=== PATIENT | male | born 1980 | race Caucasian/White ===

== ENCOUNTER 2017-01-08 18:27 | Emergency (ER) | payer MEDICAID, OTHER ==
[~2017-01-08] VITALS: Ht 170.2 cm; Wt 83.5 kg
[2017-01-08 18:37] VITALS: Ht 170.2 cm; Wt 83.5 kg
--- NOTE | 2017-01-08 19:32 | RADRPT ---
PROCEDURE: XR Chest. CLINICAL INDICATION: chest pain TECHNIQUE: Single frontal view of the chest was obtained COMPARISON: None FINDINGS: The heart and mediastinum are within normal limits. The lungs are clear. There is no pleural effusion or pneumothorax. RPTAT: AA IMPRESSION: No acute disease. .Alexander Shafer MD, Date Time Electronically viewed and signed by .Alexander Shafer MD, on 01/08/2017 19:32 .S/
[2017-01-08 19:57] LABS: BASOPHILS % 0.2 % (0.0-2.0); EOSINOPHILS # 0.1 10^3/ul (0.0-0.5); EOSINOPHILS % 1.4 % (0.0-7.0); HEMATOCRIT 38.3 % (42.0-52.0); HEMOGLOBIN 13.4 g/dl (14.0-18.0); LYMPHOCYTES # 1.9 10^3/ul (0.8-2.9); LYMPHOCYTES % 31.9 % (15.0-51.0); MEAN CORPUSCULAR HEMOGLOBIN 30.3 pg (29.0-33.0); MEAN CORPUSCULAR VOLUME 86.7 fl (82.0-101.0); MEAN PLATELET VOLUME 11.5 fl (7.4-10.4); MONOCYTE # 0.5 10^3/ul (0.3-0.9); MONOCYTES % 9.2 % (0.0-11.0); NEUTROPHIL # 3.4 10^3/ul (1.6-7.5); NEUTROPHILS % 57.1 % (39.0-77.0); PLATELET COUNT 191 10^3/UL (140-415); RED BLOOD COUNT 4.42 10^6/ul (4.70-6.10); RED CELL DISTRIBUTION WIDTH 12.8 % (11.5-14.5); WHITE BLOOD COUNT 5.9 10^3/ul (4.8-10.8)
[2017-01-08 20:20] LABS: ANION GAP 17 (8-16); BLOOD UREA NITROGEN 27 mg/dl (7-20); CALCIUM 9.5 mg/dl (8.4-10.2); CARBON DIOXIDE 30 mmol/L (21-31); CHLORIDE 99 mmol/L (97-110); CREATININE 1.07 mg/dl (0.61-1.24); GLUCOSE 104 mg/dl (70-220); POTASSIUM 3.9 mmol/L (3.5-5.1); SODIUM 142 mmol/L (135-144)
[2017-01-08 20:35] LABS: TROPONIN-I < 0.012 ng/ml (0.00-0.12)
[2017-01-08 20:57] LABS: INR 0.91; PROTIME 12.2 Sec (12.2-14.2)
[2017-01-08 20:58] LABS: PARTIAL THROMBOPLASTIN TIME 28.9 Sec (25.0-35.0)
--- NOTE | 2017-01-08 21:05 | ERD ---
ER Documentation Chief Complaint Date/Time DATE: 01/08/17 TIME: 20:58 Chief Complaint chest pain x 2 weeks HPI 36-year-old male with no past medical history presenting with left-sided intermittent chest pain for the past 2 weeks. 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 When he is working he has no pain. When he stops working he starts feeling some pain in the left side of his chest described as pressure- like, without any associated shortness of breath, dizziness, nausea, vomiting, or diaphoresis. He does say that he worries a lot as he is the boss at work. When he has stress, he does feel some pressure in his chest. He has no family history of coronary artery disease or other serious medical issues. No recent travel or surgeries. ROS All systems reviewed and are negative except as per history of present illness. Medications Home Meds No Active Prescriptions or Reported Meds Allergies Allergies: Coded Allergies: No Known Drug Allergies (Verified Allergy, Unknown, 01/08/17) PMhx/Soc Medical and Surgical Hx: pt denies Medical Hx, pt denies Surgical Hx Hx Alcohol Use: No Hx Substance Use: No Hx Tobacco Use: Yes (5 cigarettes a day) Smoking Status: Current every day smoker FmHx Family History: No coronary disease, No diabetes Physical Exam Vitals Vital Signs Date Time Temp Pulse Resp B/P Pulse Ox O2 Delivery O2 Flow Rate FiO2 01/08/17 18:37 99.1 74 20 131/77 100 Physical Exam Const: Well-appearing, nontoxic, no apparent distress Head: Atraumatic Eyes: Normal Conjunctiva ENT: Normal External Ears, Nose and Mouth. Neck: Full range of motion..~ No meningismus. Resp: Clear to auscultation bilaterally Cardio: Regular rate and rhythm, no murmurs. 2+ distal pulses, equal in all 4 extremities Abd: Soft, non tender, non distended. Normal bowel sounds Skin: No petechiae or rashes Back: No midline or flank tenderness Ext: No cyanosis, or edema Neur: Awake and alert and oriented 3 Psych: Normal Mood and Affect Result Diagram: 01/08/17193901/08/171939 Results 24 hrs Laboratory Tests Test 01/08/17 19:40 01/08/17 20:20 White Blood Count 5.910^3/ul Red Blood Count 4.4210^6/ul Hemoglobin 13.4g/dl Hematocrit 38.3% Mean Corpuscular Volume 86.7fl Mean Corpuscular Hemoglobin 30.3pg Mean Corpuscular Hemoglobin Concent 35.0g/dl Red Cell Distribution Width 12.8% Platelet Count 18436^3/UL Mean Platelet Volume 11.5fl Neutrophils % 57.1% Lymphocytes % 31.9% Monocytes % 9.2% Eosinophils % 1.4% Basophils % 0.2% Nucleated Red Blood Cells % 0.0/100WBC Neutrophils # 3.410^3/ul Lymphocytes # 1.910^3/ul Monocytes # 0.510^3/ul Eosinophils # 0.110^3/ul Basophils # 0.010^3/ul Nucleated Red Blood Cells # 0.010^3/ul Sodium Level 142mmol/L Potassium Level 3.9mmol/L Chloride Level 99mmol/L Carbon Dioxide Level 30mmol/L Anion Gap 17 Blood Urea Nitrogen 27mg/dl Creatinine 1.07mg/dl Glucose Level 104mg/dl Calcium Level 9.5mg/dl Troponin I < 0.012ng/ml Prothrombin Time 12.2Sec Prothrombin Time Ratio 1.0 INR International Normalized Ratio 0.91 Activated Partial Thromboplast Time Pending Procedures/MDM EMERGENT LABS AND DIAGNOSTIC STUDIES: Lab Results above were reviewed and interpreted by me. Labs were unremarkable, troponin negative 12-lead EKG was interpreted by Jay Jama MD: Normal Sinus Rhythm with ventricular rate of 66 beats per minute Normal axis Normal intervals No acute ST or T wave changes suggestive of acute ischemia or STEMI. Radiology Results as interpreted by Radiology below were reviewed by SGil Jama MD: Chest x-ray shows no acute abnormalities Initial Nursing notes reviewed. Previous Medical Records requested via the Electronic Health Record. EMERGENCY DEPARTMENT COURSE / MEDICAL DECISION MAKING: This patient is presenting with 2 weeks of intermittent chest pain. His vitals are stable and he is afebrile. I have a low suspicion for pulmonary embolism, aortic dissection, or acute coronary syndrome. His initial troponin was negative. I do not think he needs a repeat troponin as this pain has been going on for a long time. His EKG showed no acute changes. At this time I think the patient is stable for discharge. He is asymptomatic in the ED. I reassured him that does not look like the cause of his pain is emergent. Patient feels reassured. I did advise he follow up with his primary care doctor to explore other etiologies of his chest pain as an outpatient. Return precautions were given. Patient's blood pressure was elevated (>120/80) but appears stable without evidence of hypertensive emergency or urgency. The patient was counseled about the risks of hypertension and urged to pursue outpatient monitoring and therapy within a week with their primary care physician. Departure Diagnosis: Primary Impression: Chest pain Chest pain type: other chest pain Qualified Code: R07.89 - Other chest pain Condition: Stable Patient Instructions: Chest Pain, Uncertain Cause [facility]: [facility] Usted se guzman hecho un examen mdico de control que le indica que no est en trey condicin que requiera tratamiento urgente en el Departamento de Emergencia. Un estudio ms profundo y el tratamiento de mcmahan condicin pueden esperar sin ningn riesgo hasta que usted sea atendida/o en el consultorio de mcmahan mdico o trey cl ulices. Es responsabilidad suya arreglar trey frida para el seguimiento del gonzalez. MANEJO DE CONDICIONES NO URGENTES EN EL FUTURO 1) Si usted tiene un mdico de atencin primaria: Usted debera llamar a mcmahan mdico de atencin primaria antes de venir al departamento de emergencia. Despus de las horas de consultorio, mcmahan doctor o mcmahan asociado/a est disponible por telfono. El mdico o enfermero de tamiko en el servicio telefnico puede asesorarle por lalo medio para atender el problema, o gonzalez contrario se puede programar trey frdia. 2) Si usted no tiene un mdico de atencin primaria: Llame al mdico o clnica de referencia que aparece abajo gayle las horas de consultorio para hacer trey frida para que le vean. CLINICAS: [facility] [phone] [facility] [phone] [id number] [facility] [phone] [facility]. [place] [id number] [phone] [facility]. [place] [phone] [facility] [phone] [address] Additional Instructions: Zina trey frida con mcmahan medico primario en 1-2 valadez. Si estas empeorando, regresa a la alexandra de emergencias. OG JAMA MD Jan 08, 2017 21:04
[2017-01-08 21:06] VITALS: BP 127/79; PULSE 69; RESP 17; TEMP 98.1
== END 2017-01-08 21:10 | disposition home or self-care (01) ==
LOC: E/R 18:27
DX: R07.89 Other chest pain (principal); F17.210 Nicotine dependence, cigarettes, uncomplicated; R40.2142 Coma scale, eyes open, spontaneous, at arrival to emergency department; R40.2252 Coma scale, best verbal response, oriented, at arrival to emergency department; R40.2362 Coma scale, best motor response, obeys commands, at arrival to emergency department
CPT/HCPCS: 36415; 71010; 80048; 84484; 85025; 85610; 85730; 93005

== ENCOUNTER 2018-01-23 13:55 | Emergency (ER) | END 2018-01-23 15:16 | disposition home or self-care (01) ==